=== PATIENT | female | born 1965 | race Caucasian/White ===

== ENCOUNTER 2018-05-18 08:08 | Day surgery (SDC) | payer BC ==
[2018-05-15 11:47] VITALS: BMI 47.0
[2018-05-18] MEDS ORDERED: ceFAZolin SODIUM 1 GM VIAL ONE (09:10)
[2018-05-18] MEDS ORDERED: PROPOFOL 20 ML ONE ×2 (09:12)
[2018-05-18] MEDS ORDERED: KETOROLAC TROMETHAMINE 30 MG/1 ML VIAL ONE (09:13)
[2018-05-18] MEDS ORDERED: ONDANSETRON 4 MG/2 ML VIAL ONE (09:14)
[2018-05-18] MEDS ORDERED: DEXAMETHASONE SOD PHOSPHATE 4 MG/1 ML VIAL ONE (09:14)
[2018-05-18] MEDS ORDERED: MIDAZOLAM HCL 2 MG/2 ML SINGLE DOSE VIAL ONE ×2 (09:18)
[2018-05-18] MEDS ORDERED: BUPIVACAINE HCL/PF 2.5 MG/ML - 30 ML VIAL IJ ONE (10:06)
[2018-05-18] MEDS ORDERED: oxyCODONE HCL 5 MG TABLET PO PRN (10:07)
[2018-05-18] MEDS ORDERED: ONDANSETRON 4 MG/2 ML VIAL IVPUSH PRN (10:07)
[2018-05-18] MEDS ORDERED: LACTATED RINGERS SOLUTION 1,000 ML IV SCH (10:15)
[2018-05-18] MEDS ORDERED: BUPIVACAINE HCL/PF 0.25% (2.5MG/ML) 10 ML VIAL IJ ONE ×2 (10:51→11:04)
[2018-05-18 13:31] VITALS: TEMP 97.5
[2018-05-18] MEDS ORDERED: ACETAMINOPHEN 325 MG TABLET (FP) ONE (13:41)
[2018-05-18 15:22] VITALS: BP 136/94; PULSE 64
--- NOTE | 2018-05-20 14:49 | OP ---
DATE OF OPERATION: 05/18/2018 SURGEON: Idris Young MD INSPECTOR SEMICONDUCTOR WAFER: BECKIE Snider PREOPERATIVE DIAGNOSES: 1. Right knee medial and lateral meniscal tear. 2. Right knee cartilage injury. 3. Right knee synovitis. POSTOPERATIVE DIAGNOSES: 1. Right knee medial and lateral meniscal tear. 2. Right knee cartilage injury. 3. Right knee synovitis. PROCEDURE: 1. Right knee arthroscopy with partial meniscectomy, medial and lateral meniscus; CPT code 21746. 2. Right knee arthroscopy with chondroplasty and abrasionplasty; CPT code 51747. 3. Right knee arthroscopy with synovectomy; CPT code 87367. FINDINGS: 1. Medial meniscus body and posterior horn tear. 2. Lateral meniscus posterior horn tear. 3. Synovitis, patellofemoral unilateral notch area. 4. Essentially grade 2 to 3 cartilage injury, medial femoral condyle. 5. ACL and PCL intact. 6. Diffuse grade 1 to 2 cartilage injury, lateral joint line. 7. Essentially grade 2 cartilage injury, patella, with grade 2 to 4 changes, patellofemoral trochlea. PROCEDURE: Informed consent was obtained. The patient came to the operating room, where the lower extremity was prepped and draped in a sterile fashion. A tourniquet was placed on the upper thigh, but not inflated. Using standard arthroscopic technique, a lateral incision and portal was made to allow for introduction of the camera into the suprapatellar bursa. This was then taken to the medial joint line, where under direct visualization, a medial incision and portal was made. Excessive synovium noted in the medial, lateral and patellofemoral and notch area was removed by an upbiter, shaver and Bovie cautery. This was found to bring in inflammatory tissue into the joint surface, a source of pain and dysfunction. Probing of the medial and lateral meniscus found tears, as described in the findings. These were removed with the upbiter and shaver and taken back to a stable rim. Grade 2 to 3 degenerative changes were treated with a chondroplasty, removing all flaking surfaces with low-setting Bovie along the periphery to prevent further flaking. Grade 4 changes, as noted, were treated with an abrasionplasty, creating a bleeding surface at the bone/cartilage interface. Aggressive debridement with shaver/pam created bleeding surface. Micro fracture also done when indicated in findings. All areas of the knee were once again reexamined. The knee was then drained and a single suture was placed in all portals. A sterile dressing was placed and the patient was transferred to the recovery room without complication. The PA listed above was present and assisted at surgery. Their presence was absolutely medically necessary for the completion of the procedure. They helped hold the arthroscopy, pass instruments (and implants when indicated) and the procedure could not have been completed without their assistance. IDRIS YOUNG M.D. [id number]
== END 2018-05-18 14:30 | disposition home or self-care (01) ==
LOC: FASU 08:08
PROVIDERS: ATTEND Orthopaedic Surgery
PROC: 0SBC4ZZ Excision of Right Knee Joint, Percutaneous Endoscopic Approach (ICD-10-PCS; 2018-05-18)
PROC: 0SBC4ZZ Excision of Right Knee Joint, Percutaneous Endoscopic Approach (ICD-10-PCS; 2018-05-18)
PROC: 0SBC4ZZ Excision of Right Knee Joint, Percutaneous Endoscopic Approach (ICD-10-PCS; 2018-05-18)
PROC: 0SBC4ZZ Excision of Right Knee Joint, Percutaneous Endoscopic Approach (ICD-10-PCS; principal; 2018-05-18 09:30)
DX: S83.281A Other tear of lateral meniscus, current injury, right knee, initial encounter (principal); S83.241A Other tear of medial meniscus, current injury, right knee, initial encounter; M65.861 Other synovitis and tenosynovitis, right lower leg; X58.XXXA Exposure to other specified factors, initial encounter; Y93.9 Activity, unspecified; Y92.9 Unspecified place or not applicable; Y99.9 Unspecified external cause status
CPT/HCPCS: 94760

== ENCOUNTER 2020-08-21 17:08 | Emergency (ER) | payer OTHER ==
[2020-08-21 17:56] VITALS: BP 149/80; PULSE 64; TEMP 98.3; BMI 47.7
[2020-08-21] MEDS ORDERED: FAMOTIDINE 20 MG/50 ML IVPB 20 MG/50 ML MG IVPB ONE ×2 (18:17→18:52)
[2020-08-21] MEDS ORDERED: MAG HYDROX/AL HYDROX/SIMETH 30 ML UNIT-DOSE CUP PO ONE (18:17)
[2020-08-21] MEDS ORDERED: ONDANSETRON 4 MG/2 ML VIAL IVPUSH ONE (18:17)
[2020-08-21] MEDS ORDERED: LIDOCAINE VISCOUS 2% ORAL/TOP 20 ML UNIT-DOSE CUP MM ONE (18:20)
[2020-08-21] MEDS ORDERED: ONDANSETRON 4 MG/2 ML VIAL ONE (18:52)
[2020-08-21] MEDS ORDERED: MAG HYDROX/AL HYDROX/SIMETH 30 ML UNIT-DOSE CUP ONE (18:52)
[2020-08-21] MEDS ORDERED: LIDOCAINE VISCOUS 2% ORAL/TOP 20 ML UNIT-DOSE CUP ONE (18:52)
[2020-08-21 19:13] LABS: BASO % 0.7 % (0-2.0); EOS % 0.7 % (0-4.5); HEMATOCRIT 44.7 % (32.4-45.2); HEMOGLOBIN 14.4 GM/dl (10.7-15.3); LYMPH % 17.1 % (8-40); MCH 28.1 pg (25.7-33.7); MCHC 32.3 g/dl (32.0-36.0); MEAN PLT VOLUME 9.1 fl (7.5-11.1); MONO % 3.8 % (3.8-10.2); NEUT % 77.7 % (42.8-82.8); PLATELET COUNT 270 K/MM3 (134-434); RBC 5.13 M/mm3 (3.60-5.2); RDW 13.8 % (11.6-15.6); WHITE BLOOD COUNT 8.4 K/mm3 (4.0-10.8)
[2020-08-21 19:31] LABS: ALBUMIN 4.2 g/dl (3.4-5.0); BILIRUBIN,TOTAL 0.7 mg/dl (0.2-1); CALCIUM 9.5 mg/dl (8.5-10); CREATININE 0.8 mg/dl (0.55-1.3); POTASSIUM 3.7 mmol/L (3.5-5.1); TOT PROT 7.8 g/dl (6.4-8.2)
== END 2020-08-21 22:20 | disposition home or self-care (01) ==
LOC: FER 17:08
PROC: 3E033NZ Introduction of Analgesics, Hypnotics, Sedatives into Peripheral Vein, Percutaneous Approach (ICD-10-PCS; principal; 2020-08-21)
PROC: 3E033GC Introduction of Other Therapeutic Substance into Peripheral Vein, Percutaneous Approach (ICD-10-PCS; 2020-08-21)
DX: R10.33 Periumbilical pain (principal); K29.00 Acute gastritis without bleeding
CPT/HCPCS: 36415; 71045-TC-FY; 80053; 81003; 83605; 83690; 84484; 85025; 87086; 87186; 93005; 99285-25